=== PATIENT | male | born 1990 | race Caucasian/White ===

== ENCOUNTER 2020-03-25 12:20 | Outpatient (REF) | payer OTHER, SELFPAY | END 2020-03-25 12:21 | disposition home or self-care (01) | LOC: HO.LAB 12:20 | PROVIDERS: Visit Provider Internal Medicine | DX: Z20.828 Contact with and (suspected) exposure to other viral communicable diseases (principal) | CPT/HCPCS: C9803; U0003 ==

== ENCOUNTER 2020-04-12 14:49 | Outpatient (REF) | payer OTHER, SELFPAY | END 2020-04-12 14:50 | disposition home or self-care (01) | LOC: HO.LAB 14:49 | PROVIDERS: PCP Internal Medicine; Visit Provider Internal Medicine | DX: Z20.828 Contact with and (suspected) exposure to other viral communicable diseases (principal) | CPT/HCPCS: C9803; U0003 ==

== ENCOUNTER 2020-07-23 12:19 | Outpatient (REF) | payer OTHER, SELFPAY | END 2020-07-23 12:20 | disposition home or self-care (01) | LOC: HO.LAB 12:19 | PROVIDERS: Visit Provider Internal Medicine | DX: Z20.822 Contact with and (suspected) exposure to COVID-19 (principal) | CPT/HCPCS: C9803; U0003; U0005 ==

== ENCOUNTER 2020-08-10 10:04 | Outpatient (REF) | payer OTHER, SELFPAY ==
[2020-08-10 10:21] LABS: COVID-19 Test Negative (Negative)
== END 2020-08-10 10:05 | disposition home or self-care (01) ==
LOC: HO.LAB 10:04
PROVIDERS: Visit Provider Internal Medicine
DX: Z20.822 Contact with and (suspected) exposure to COVID-19 (principal)
CPT/HCPCS: 36415; 87635; C9803

== ENCOUNTER 2022-11-06 09:58 | Outpatient (AMB) | payer OTHER, SELFPAY ==
--- NOTE | 2022-11-06 09:59 | MHC.PC.OV ---
Vital Signs 11/06/22 10:01 Height 6 ft 1.5 in Weight 255 lb 6 oz BMI 33.2 BP 130/70 Blood Pressure Location Lt brachial Position Sitting Pulse 82 Pulse Source Pulse Oximeter Pulse Oximetry (%) 98 Oxygen Delivery Method Room Air Intake Visit Reasons: Med follow up Intake Note: Patient is here to follow up on medication review. Sergeant Of Corrections Required: No Thermodynamics Engineer: Not Required per policy Accompanied by: Self / Same As Patient Allergies No Known Allergies Allergy (Verified 11/06/22 10:01) Medication List - Last Reconciled 11/06/22 by Woo Kirk MD apremilast (Otezla) 30 mg PO BID cephalexin 500 mg PO QID hydrocortisone 2.5% topical naproxen 500 mg PO BID paroxetine HCl 10 mg PO DAILY Tobacco use date assessed: 11/06/22 Dental Screening Dental Screen Date: 11/06/22 Did you have a dental visit in the last 12 months?: Yes Did you have a dental problem in the last 6 months where you did not have access to dental care?: No Was dental information given to patient?: Patient has dentist HPI Med follow up HPI Details depression and psoriatic arthritis; goes to rheum; doing well [facility] Medical History (Updated 11/06/22 @ 10:35 by Woo Kirk MD) Psoriatic arthritis Surgical History History of tear of ACL (anterior cruciate ligament) History of tonsillectomy and adenoidectomy History of wisdom tooth extraction Family History (Updated 11/06/22 @ 10:07 by AJ Tate) Father Prediabetes Hypertension Asthma Mother No problems noted. 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 1. Little interest or pleasure in doing things: not at all 2. Feeling down, depressed, or hopeless: not at all 3. Trouble falling or staying asleep, or sleeping too much: not at all 4. Feeling tired or having little energy: not at all 5. Poor appetite or overeating: not at all 6. Feeling bad about yourself - or that you are a failure or have let yourself or your family down: not at all 7. Trouble concentrating on things, such as reading the newspaper or watching television: not at all 8. Moving or speaking so slowly that other people could have noticed. Or the opposite - being so fidgety or restless that you have been moving around a lot more than usual: not at all 9. Thoughts that you would be better off or of hurting yourself in some way: not at all Total score: 0 Depression Screening Interpretation: Negative Source: Developed by Drs. Noé Ralph, Annamaria Arellano, Alexandro Reynoso and colleagues, with an educational isa from [employer]. Thrive Questionnaire Date Thrive assessed: 11/06/22 I am a: Patient What is your living situation today?: I have a steady place to live Within the past 12 months, did the food you bought not last and you didn't have the money to get more?: Never true Within the past 12 months, did you worry whether your food would run out before you got money to buy more?: Never true Do you have trouble paying for medicines?: No Do you have trouble getting transportation to medical appointments?: No Do you have trouble paying your heating and electricity bill?: No Do you have trouble taking care of your child, family member or friend?: No Do you have trouble with day-to-day activities such as bathing, preparing meals, shopping, managing finances, etc.?: No Are you currently unemployed and looking for a job?: No Are you interested in more education?: No Currently or been in a relationship where the following occur: no concerns reported AUDIT C Alcohol Use Questionnaire (AUDIT-C) 1. How often do you have a drink containing alcohol?: Never Total Score: 0 CHANELL-7 AMB Questionnaire CHANELL-7 Date CHANELL - 7 assessed: 11/06/22 Feeling nervous, anxious, or on edge: 1 = Several days (currently on medication) Not being able to stop or control worryin = Not at all Worrying too much about different things: 0 = Not at all Trouble relaxin = Not at all Being so restless that it is hard to sit still: 0 = Not at all Becoming easily annoyed or irritable: 0 = Not at all Feeling afraid as if something awful might happen: 0 = Not at all Total CHANELL-7 score (0-4 normal; 5-9 mild; 10-14 moderate; 15-21 severe): 1 Source: Developed by Drs. Noé Ralph, Annamaria Arellano, Alexandro Reynoso and colleagues, with an educational isa from [employer]. Review of Systems Const Denies chills, Denies headache(s) and Denies weight loss ENT Denies headache(s) Card Denies chest pain, Denies syncope, Denies irregular heart rhythm and Denies dyspnea Resp Denies chest congestion, Denies cough and Denies dyspnea GI Denies abdominal pain, Denies change in stool character, Denies nausea and Denies vomiting Musc Denies deformity and Denies joint swelling Neuro Denies syncope and Denies headache(s) Physical exam (Primary Care) Vital Signs: Last Vital Signs Pulse 82 11/06/22 10:01 BP 130/70 11/06/22 10:01 Pulse Ox 98 11/06/22 10:01 Oxygen Delivery Method Room Air 11/06/22 10:01 BMI result Body Mass Index 33.2 Tobacco/Smoking Status: Tobacco use Status Tobacco use date assessed 11/06/22 11/06/22 10:08 Patient Tobacco Use Status Never used Tobacco 11/06/22 10:08 e-Cigarette/Vaping Use Never Used 11/06/22 10:08 PHQ-9: PHQ-9 Score PHQ-9: Total score 0 11/06/22 10:08 Depression Screening Interpretation: Negative Thrive Assessment: Date of Thrive Assessment Date Thrive assessed 11/06/22 11/06/22 10:08 Currently or been in a relationship where the following occur: no concerns reported Const General: cooperative, comfortable and no acute distress Resp Effort & Inspection: normal respiratory effort Auscultation: clear to auscultation bilaterally Percussion: percussion normal Cardio Jugular venous distension: no JVD Rate: regular rate Rhythm: regular rhythm Other: scrotal cyst Assessment and Plan Assessment & Plan (1) Psoriatic arthritis: Code(s): L40.50 - Arthropathic psoriasis, unspecified Plan: stable; as per rheum (2) Depression: Code(s): F32.A - Depression, unspecified Plan: stable; same rx (3) Scrotal cyst: Code(s): L72.9 - Follicular cyst of the skin and subcutaneous tissue, unspecified Plan: ref urol Orders: Orders Comprehensive [place]. Panel Fast Today N28.9 - Disorder of kidney and ureter, unspecified Lipid Panel Today E78.5 - Hyperlipidemia, unspecified Thyroid Stimulating Hormone Today E03.9 - Hypothyroidism, unspecified Complete Blood Count Auto Diff Today D64.9 - Anemia, unspecified Referrals Urology Referral L72.9 - Follicular cyst of the skin and subcutaneous tissue, unspecified Coding Level of Care Code Est Pt Level 4 (53194) Diagnoses Psoriatic arthritis L40.50 Depression F32.A Scrotal cyst L72.9
[2022-11-06 10:01] VITALS: BP 130/70; PULSE 82; O2SAT 98; BMI 33.2
== END 2022-11-06 10:19 | disposition home or self-care (01) ==
PROVIDERS: PCP Internal Medicine; Visit Provider Internal Medicine
DX: L40.50 Arthropathic psoriasis, unspecified (principal); F32.A Depression, unspecified; L72.9 Follicular cyst of the skin and subcutaneous tissue, unspecified
CPT/HCPCS: 99214

== ENCOUNTER 2022-12-26 14:31 | Outpatient (AMB) | payer OTHER, SELFPAY ==
--- NOTE | 2022-12-26 14:59 | A.OFFVIS_ITS ---
Intake Intake Visit Reasons: Follicular cyst of skin and subcutaneous tissue Intake Note: New Patent presents for initial visit scrotal cyst Urology Medications: None Blood Thinner: None Clerical Coordinator Required: No Accompanied by: Self / Same As Patient Allergies No Known Allergies Allergy (Verified 12/26/22 18:10) Medication List - Last Reconciled 12/26/22 by YASMEEN Pandey apremilast (Otezla) 30 mg PO BID hydrocortisone 2.5% topical naproxen 500 mg PO BID paroxetine HCl 10 mg PO DAILY HPI HPI Comments History of Present Illness Details Martin is a very pleasant 32 year old male patient of Dr. Kirk. He has a PMH of psoriatic arthritis. He presents to the office today as a new patient for a left sided scrotal sebaceous cyst. When asked he reports cyst to have been present for approximately 5 years. He denies pain. He denies any issues with his urinartion. When asked he denies urinary urgency, urinary frequency, incontinence, nocturia, hematuria, dysuria, foul smelling urine, changes to urinary stream, flank pain, fever, and or chills. He is happy with his current voiding parameters. In assessment of the patient today moderate sized sebaceous cyst noted to left side of the scrotum. There are multiple (4 to 5) other smaller cyst like areas. Patient with psoriatic arthritis exacerbation to top of the pubic area. He reports to be taking Otezla and topical steroids to assist with this. In office urinalysis results reviewed with the patient today. Patient otherwise denies any other issues or concerns at this time. Discussed at length surgical procedure for removal/drainage verses continuation of surveillance monitoring. Discussed risks and benefits of surgical intervention versus surveillance monitoring. At this time patient wishes to undergo surgical intervention. [facility] Medical History Psoriatic arthritis Surgical History History of tear of ACL (anterior cruciate ligament) History of wisdom tooth extraction History of tonsillectomy and adenoidectomy Family History Father Prediabetes Hypertension Asthma Mother No problems noted. 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 [employer] Cognitive needs: No Hearing needs: No Vision needs: Yes (glasses) Review of Systems Const All systems reviewed & are unremarkable except as noted in HPI and below Reports no additional complaints Eyes Reports no additional complaints ENT Reports no additional complaints Card Reports no additional complaints Resp Reports no additional complaints GI Reports no additional complaints Reports as per HPI Musc Reports as per HPI Skin/Breast Reports as per HPI Neuro Reports no additional complaints Psych Reports no additional complaints Endo Reports no additional complaints Physical Exam Const General: cooperative, healthy appearing, comfortable, no acute distress, well developed, alert and awake Orientation/consciousness: patient oriented x3 Limitations: no limitations HEENT Head: Yes normal to inspection, Yes normocephalic and Yes atraumatic Ears: hearing grossly normal bilaterally Eyes General: appearance normal, both eyes and all related structures Neck Neck: Yes normal visual inspection and Yes trachea midline Chest Chest palpation & inspection: normal inspection of the chest Resp Effort & Inspection: normal respiratory effort and able to speak in complete sentences Cardio Rate: regular rate GI Inspection: Yes normal to inspection General: Yes no CVA tenderness Penis: normal penis and circumcised Meatus: meatus normal Scrotum: other (moderate sized Sebaceous cyst noted to left side of the scrotum ) Back/Spine/Pelvis Back: no CVA tenderness Skin General skin exam: no rashes or lesions noted Neuro General: patient oriented x3 Extrem General: Yes normal to inspection Psych Appearance: grossly normal and well kempt Mental Status: mental status grossly normal Speech and movement: Normal speech and movement present and Clear speech present Affect: normal affect Attitude: cooperative Thought process: Normal thought process present Thought content: Normal thought content present Insight: Good insight present (Psych) Judgement: Good judgement present (Psych) Results AMB Urinalysis, Automated UA Leukoctes 0 Rupa/uL Last Edit by Aspen Sarabia on 12/26/22 15:09 UA Nitrite Negative Last Edit by Aspen Sarabia on 12/26/22 15:09 UA Urobilinogen 0.2 mg/dL Last Edit by Aspen Sarabia on 12/26/22 15:09 UA Protein 0 mg/dL Last Edit by Aspen Sarabia on 12/26/22 15:09 UA pH 6.5 Last Edit by Aspen Sarabia on 12/26/22 15:09 UA Blood 0 Myron/uL Last Edit by Aspen Sarabia on 12/26/22 15:09 UA Specific Banks 1.005 Last Edit by Aspen Sarabia on 12/26/22 15:09 UA Ketone Negative Last Edit by Aspen Sarabia on 12/26/22 15:09 UA Bilirubin 0 mg/dL Last Edit by Aspen Sarabia on 12/26/22 15:09 UA Glucose 0 mg/dL Last Edit by Aspen Sarabia on 12/26/22 15:09 Results Reviewed Results Reviewed: Laboratory Last Values Urine pH (Auto) 6.5 12/26/22 15:05 Specific Banks (Auto) 1.005 12/26/22 15:05 Urine Protein (Auto) 0 mg/dL 12/26/22 15:05 Glucose (UA)(Auto) 0 mg/dL 12/26/22 15:05 Urine Ketones (Auto) Negative 12/26/22 15:05 Urine Blood (Auto) 0 Myron/uL 12/26/22 15:05 Urine Nitrite (Auto) Negative 12/26/22 15:05 Urine Bilirubin (Auto) 0 mg/dL 12/26/22 15:05 Urine Urobilinogen (Auto) 0.2 mg/dL 12/26/22 15:05 Leukocyte Esterase (Auto) 0 Rupa/uL 12/26/22 15:05 Assessment & Plan Assessment & Plan (1) Scrotal cyst: Code(s): L72.9 - Follicular cyst of the skin and subcutaneous tissue, unspecified Plan: Risks, benefits and alternatives to therapy were discussed. These include but are not limited to infection, bleeding, damage to local organs and tissues, need for further interventions. ? Anesthetic risks regarding cardiac arrhythmia, blood clots, and potential mortality were discussed. The patient understands the typical recovery time and the outpatient nature of the procedure. After consideration of these risks the patient gives full informed consent and they wish to move ahead with the procedure. (2) Sebaceous cyst: Code(s): L72.3 - Sebaceous cyst Plan In office urinalysis results reviewed with the patient today; as noted above Patient with moderate sized sebaceous cyst to left side of the scrotum with multiple smaller scrotal cysts present Patient denies any bothersome urinary issues or concerns at this time in to further assess Will schedule for sebaceous cyst drainage/removal along with CO2 laser removal of multiple smaller scrotal cysts Discussed at length risks versus benefits of surgical procedure All questions were answered Will schedule for surgical procedure as discussed with Dr. Pereyra Follow up S/P surgery per Dr. Pereyra's orders; or sooner with any questions, issues, or concerns. Orders: Orders AMB Urinalysis Automated Today Z13.9 - Encounter for screening, unspecified Patient Instructions: The patient had an opportunity to ask questions regarding the treatment plan. All questions were answered. Physical exam, labs, and imaging were discussed and reviewed in detail. As well as risks, benefits, and discussion of treatment choices. No major barriers to understanding were identified. The patient expressed understanding and agreement with the above treatment plan. The patient was made aware they should contact our office by phone for worsening of their current condition, the appearance of new symptoms, or with any questions or concerns. Compliance is encouraged with any medications and follow up testing that is ordered. It is a privilege to be allowed the opportunity to participate in? your urological care.? Again, if you have any questions or concerns If you have any questions or concerns please do not hesitate to contact me. The office is [phone]. This note is constructed using voice recognition software. While every effort has been made to ensure accuracy silhouette artist errors may have been included. Yours sincerely, YASMEEN Pandey Coding Level of Care Code New Pt Level 4 (30430) Diagnoses Scrotal cyst L72.9 Sebaceous cyst L72.3
== END 2022-12-26 15:44 | disposition home or self-care (01) ==
PROVIDERS: PCP Internal Medicine; Referring Provider Internal Medicine; Visit Provider Nurse Practitioner Family
DX: L72.9 Follicular cyst of the skin and subcutaneous tissue, unspecified (principal); L72.3 Sebaceous cyst; Z13.9 Encounter for screening, unspecified
CPT/HCPCS: 99204

== ENCOUNTER → 2022-12-26 14:31 | Outpatient (BNVA) | payer OTHER, SELFPAY | PROVIDERS: PCP Internal Medicine; Referring Provider Internal Medicine; Visit Provider Nurse Practitioner Family | DX: L72.9 Follicular cyst of the skin and subcutaneous tissue, unspecified (principal); L72.3 Sebaceous cyst | CPT/HCPCS: 81003 ==

== ENCOUNTER 2023-01-02 08:36 | Outpatient (REF) | payer OTHER, SELFPAY ==
[2023-01-02 08:58] LABS: MANUAL DIFF FLAG NO
[2023-01-02 10:07] LABS: Basophils Percent Auto 0.3 % (0-2); Eosinophils Absolute Auto 0.1 X10*3/uL (0.0-0.4); Eosinophils Percent Auto 1.2 % (0-4); Hematocrit 42.4 % (42.0-52.0); Hemoglobin 13.6 g/dl (14.0-18.0); Imm Gran Abs Auto 0.08 X10*3/uL (0.00-0.03); Imm Gran Pct Auto 0.8 % (0.0-0.4); Lymphocytes Absolute Auto 2.3 X10*3/uL (1.2-4.9); Lymphocytes Percent Auto 23.4 % (20-40); Mean Corpuscular HGB Conc 32.1 g/dl (31.0-36.0); Mean Corpuscular Hemoglobin 27.1 pg (27.0-33.0); Mean Corpuscular Volume 84.5 fL (80.0-98.0); Mean Platelet Volume 11.8 fL (9.4-12.4); Monocytes Absolute Auto 0.8 X10*3/uL (0.1-1.2); Monocytes Percent Auto 7.8 % (2-11); Neutrophils Absolute Auto 6.4 x10*3/uL (2.0-8.3); Neutrophils Percent Auto 66.5 % (45-73); Platelet Count 297 X10*3/uL (160-400); Red Blood Count 5.02 X10*6/uL (4.60-5.80); Red Cell Distribution Width 13.2 % (11.0-16.0); White Blood Count 9.6 X10*3/uL (4.8-10.8)
[2023-01-02 11:13] LABS: Alanine Aminotransferase 14 U/L (0-40); Albumin Level 4.1 g/dL (3.5-5.0); Alkaline Phosphatase 71 U/L (39-117); Anion Gap 13 (12-20); Aspartate Amino Transferase 17 U/L (5-37); Bilirubin Total 0.4 mg/dL (0.0-1.0); Blood Urea Nitrogen 9 mg/dL (9-16); Calcium 9.6 mg/dL (8.4-10.2); Carbon Dioxide 26 mmol/L (22-29); Chloride 106 mmol/L (96-108); Cholesterol 187 mg/dL (<200); Estimated Glomerular Filt Rate > 60; Glucose Fasting 93 mg/dL (60-99); HDL Cholesterol 44 mg/dL (>40); LDL Cholesterol Calculated 124 mg/dL (<100); Potassium 4.2 mmol/L (3.3-5.1); Sodium 141 mmol/L (135-145); Total Protein 8.1 g/dL (6.5-8.0); Triglycerides 95 mg/dL (<150)
[2023-01-02 11:28] LABS: Thyroid Stimulating Hormone 1.58 uIU/mL (0.32-4.0)
== END 2023-01-02 08:37 | disposition home or self-care (01) ==
LOC: HO.LAB 08:36
PROVIDERS: PCP Internal Medicine; Visit Provider Internal Medicine
DX: D64.9 Anemia, unspecified (principal); E03.9 Hypothyroidism, unspecified; N28.9 Disorder of kidney and ureter, unspecified; E78.5 Hyperlipidemia, unspecified
CPT/HCPCS: 36415; 80053; 80061; 84443; 85025

== ENCOUNTER 2023-05-28 09:25 | Outpatient (AMB) | payer OTHER, SELFPAY ==
[2023-05-28 09:30] VITALS: BP 126/70; PULSE 60; O2SAT 100; BMI 32.9
--- NOTE | 2023-05-28 09:30 | MHC.PC.OV ---
Vital Signs 05/28/23 09:30 Height 6 ft 1.5 in Weight 253 lb BMI 32.9 BP 126/70 Blood Pressure Location Lt brachial Position Sitting Pulse 60 Pulse Source Pulse Oximeter Pulse Oximetry (%) 100 Oxygen Delivery Method Room Air Intake Visit Reasons: Arthritis/ referral Devil Tender Required: No Instructor Dramatic Arts: Not Required per policy Accompanied by: Self / Same As Patient Allergies No Known Allergies Allergy (Verified 05/28/23 09:31) Tobacco use date assessed: 05/28/23 Dental Screening Dental Screen Date: 05/28/23 Did you have a dental visit in the last 12 months?: Yes Did you have a dental problem in the last 6 months where you did not have access to dental care?: No Was dental information given to patient?: Patient has dentist HPI Arthritis/ referral HPI Details psoriatic arthritis and needs referral to [facility]; has been going there for years [facility] Medical History (Updated 02/15/23 @ 14:03 by Lesa Godwin RN) Depression Psoriatic arthritis Surgical History History of tear of ACL (anterior cruciate ligament) History of wisdom tooth extraction History of tonsillectomy and adenoidectomy Family History Father Prediabetes Hypertension Asthma Mother No problems noted. 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 1. Little interest or pleasure in doing things: not at all 2. Feeling down, depressed, or hopeless: not at all 3. Trouble falling or staying asleep, or sleeping too much: not at all 4. Feeling tired or having little energy: not at all 5. Poor appetite or overeating: not at all 6. Feeling bad about yourself - or that you are a failure or have let yourself or your family down: not at all 7. Trouble concentrating on things, such as reading the newspaper or watching television: not at all 8. Moving or speaking so slowly that other people could have noticed. Or the opposite - being so fidgety or restless that you have been moving around a lot more than usual: not at all 9. Thoughts that you would be better off or of hurting yourself in some way: not at all Total score: 0 Depression Screening Interpretation: Negative Depression Screening Done: Yes 44232 - PHQ-9 Billing: Yes Source: Developed by Drs. Noé Ralph, Annamaria Arellano, Alexandro Reynoso and colleagues, with an educational isa from [employer]. Thrive Questionnaire Date Thrive assessed: 05/28/23 I am a: Patient What is your living situation today?: I have a steady place to live Within the past 12 months, did the food you bought not last and you didn't have the money to get more?: Never true Within the past 12 months, did you worry whether your food would run out before you got money to buy more?: Never true Do you have trouble paying for medicines?: No Do you have trouble getting transportation to medical appointments?: No Do you have trouble paying your heating and electricity bill?: No Do you have trouble taking care of your child, family member or friend?: No Do you have trouble with day-to-day activities such as bathing, preparing meals, shopping, managing finances, etc.?: No Are you currently unemployed and looking for a job?: No Are you interested in more education?: No Please select the resources that you would like help with: None THRIVE Score: 0 AUDIT C Alcohol Use Questionnaire (AUDIT-C) 1. How often do you have a drink containing alcohol?: Never Total Score: 0 CHANELL-7 AMB Questionnaire CHANELL-7 Date CHANELL - 7 assessed: 05/28/23 Feeling nervous, anxious, or on edge: 0 = Not at all Not being able to stop or control worryin = Not at all Worrying too much about different things: 0 = Not at all Trouble relaxin = Not at all Being so restless that it is hard to sit still: 0 = Not at all Becoming easily annoyed or irritable: 0 = Not at all Feeling afraid as if something awful might happen: 0 = Not at all Total CHANELL-7 score (0-4 normal; 5-9 mild; 10-14 moderate; 15-21 severe): 0 Source: Developed by Drs. Noé Ralph, Annamaria Arellano, Alexandro Reynoso and colleagues, with an educational isa from [employer]. CHANELL-7 Assessment Billing CHANELL-7 Assessment Tool: CHANELL-7 Assessment 98239 Review of Systems Const Denies chills, Denies headache(s) and Denies weight loss ENT Denies headache(s) Card Denies chest pain, Denies syncope, Denies irregular heart rhythm and Denies dyspnea Resp Denies chest congestion, Denies cough and Denies dyspnea GI Denies abdominal pain, Denies change in stool character, Denies nausea and Denies vomiting Musc Denies deformity and Denies joint swelling Neuro Denies syncope and Denies headache(s) Physical exam (Primary Care) Vital Signs: Last Vital Signs Pulse 60 05/28/23 09:30 BP 126/70 05/28/23 09:30 Pulse Ox 100 05/28/23 09:30 Oxygen Delivery Method Room Air 05/28/23 09:30 BMI result Body Mass Index 32.9 Tobacco/Smoking Status: Tobacco use Status Tobacco use date assessed 05/28/23 05/28/23 09:35 Patient Tobacco Use Status Never used Tobacco 05/28/23 09:35 e-Cigarette/Vaping Use Never Used 05/28/23 09:35 PHQ-9: PHQ-9 Score PHQ-9: Total score 0 05/28/23 09:35 Depression Screening Interpretation: Negative Thrive Assessment: Date of Thrive Assessment Date Thrive assessed 05/28/23 05/28/23 09:35 Const General: cooperative, comfortable, no acute distress and alert Neck Neck: Yes no lymphadenopathy Thyroid: Thyroid normal Resp Effort & Inspection: normal respiratory effort Auscultation: clear to auscultation bilaterally Percussion: percussion normal Cardio Jugular venous distension: no JVD Palpation: normal PMI Rate: regular rate Rhythm: regular rhythm Heart sounds: S1 normal heart sound present and S2 normal heart sound present GI Inspection: Yes normal to inspection Palpation (GI): No hepatosplenomegaly present Skin General skin exam: no rashes or lesions noted Extrem General: Yes no clubbing, cyanosis or edema Assessment and Plan Assessment & Plan (1) Psoriatic arthritis: Code(s): L40.50 - Arthropathic psoriasis, unspecified Plan: as per rheum Orders: Referrals Rheumatology Referral L40.50 - Arthropathic psoriasis, unspecified Coding Level of Care Code Est Pt Level 3 (06116) Diagnoses Psoriatic arthritis L40.50 Additional Codes CHANELL-7 Assessment Billing - CHANELL-7 Assessment Tool: CHANELL-7 Assessment 17204 ([id number])
== END 2023-05-28 09:42 | disposition home or self-care (01) ==
PROVIDERS: PCP Internal Medicine; Visit Provider Internal Medicine
DX: L40.50 Arthropathic psoriasis, unspecified (principal)
CPT/HCPCS: 99213

== ENCOUNTER 2024-08-29 12:53 | Outpatient (AMB) | payer OTHER, SELFPAY ==
[2024-08-29 13:09] VITALS: BP 146/106; PULSE 81; RESP 16; TEMP 37.1; O2SAT 99; BMI 31.1
--- NOTE | 2024-08-29 13:09 | A.OFFPC_ITS ---
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 Required: No Accompanied by: Self / Same As Patient Allergies No Known Allergies Allergy (Verified 08/29/24 13:34) Medication List - Last Reconciled 08/29/24 by ELIUD Estrada apremilast (Otezla) 30 mg PO BID folic acid 1 mg PO DAILY methotrexate sodium 10 mg PO QWEEK naproxen 500 mg PO BID paroxetine HCl 10 mg PO DAILY Tobacco use date assessed: 08/29/24 Dental Screening Dental Screen Date: 08/29/24 Did you have a dental visit in the last 12 months?: Yes Did you have a dental problem in the last 6 months where you did not have access to dental care?: No Was dental information given to patient?: Patient has dentist HPI ESCOBAR DR Kirk HPI Details The patient is a 34-year-old male presenting for transition of care from Dr. Kirk. Medical history includes Depression, anxiety, but noted to be hypertensive in office today. He mentions that the elevation in blood pressure is unusual for him. He associates this change with recent stress at work and personal anticipations to meeting new provider but reports no other associated cardiovascular symptoms. He regularly visits a well control instructor for rheumatoid arthritis, taking Otezla and naproxen which he missed taking on the day of the visit. A prior ruptured epidermal cyst has decreased in size and is currently manageable. He maintains a stable medication regimen for anxiety with paroxetine, and his hyperlipidemia is managed through dietary adjustments, although his LDL was previously noted to be slightly elevated. [facility] Medical History (Updated 09/08/24 @ 16:47 by ELIUD Estrada) Depression Psoriatic arthritis Surgical History History of tear of ACL (anterior cruciate ligament) History of wisdom tooth extraction History of tonsillectomy and adenoidectomy Family History Father Prediabetes Hypertension Asthma Mother No problems noted. 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 1. Little interest or pleasure in doing things: not at all 2. Feeling down, depressed, or hopeless: not at all 3. Trouble falling or staying asleep, or sleeping too much: not at all 4. Feeling tired or having little energy: not at all 5. Poor appetite or overeating: not at all 6. Feeling bad about yourself - or that you are a failure or have let yourself or your family down: not at all 7. Trouble concentrating on things, such as reading the newspaper or watching television: not at all 8. Moving or speaking so slowly that other people could have noticed. Or the opposite - being so fidgety or restless that you have been moving around a lot more than usual: not at all 9. Thoughts that you would be better off or of hurting yourself in some way: not at all Total score: 0 Depression Screening Interpretation: Negative Depression Screening Done: Yes 05525 - PHQ-9 Billing: Yes Source: Developed by Drs. Noé Ralph, Annamaria Arellano, Alexandro Reynoso and colleagues, with an educational isa from [employer]. Thrive Questionnaire Date Thrive assessed: 08/29/24 I am a: Patient What is your living situation today?: I have a steady place to live Within the past 12 months, did the food you bought not last and you didn't have the money to get more?: Never true Within the past 12 months, did you worry whether your food would run out before you got money to buy more?: Never true Do you have trouble paying for medicines?: No Do you have trouble getting transportation to medical appointments?: No Do you have trouble paying your heating and electricity bill?: No Do you have trouble taking care of your child, family member or friend?: No Do you have trouble with day-to-day activities such as bathing, preparing meals, shopping, managing finances, etc.?: No Are you currently unemployed and looking for a job?: No Are you interested in more education?: No Please select the resources that you would like help with: None Currently or been in a relationship where the following occur: No concerns reported THRIVE Score: 0 AUDIT C Alcohol Use Questionnaire (AUDIT-C) 1. How often do you have a drink containing alcohol?: Monthly or less 2. How many drinks containing alcohol do you have on a typical day when you are drinking?: 1 or 2 3. How often do you have six or more drinks on one occasion?: Never Total Score: 1 Score Reviewed/Action Taken: No CHANELL-7 AMB Questionnaire CHANELL-7 Date CHANELL - 7 assessed: 08/29/24 Feeling nervous, anxious, or on edge: 0 = Not at all Not being able to stop or control worryin = Not at all Worrying too much about different things: 0 = Not at all Trouble relaxin = Not at all Being so restless that it is hard to sit still: 0 = Not at all Becoming easily annoyed or irritable: 0 = Not at all Feeling afraid as if something awful might happen: 0 = Not at all Total CHANELL-7 score (0-4 normal; 5-9 mild; 10-14 moderate; 15-21 severe): 0 Source: Developed by Drs. Noé Ralph, Annamaria Arellano, Alexandro Reynoso and colleagues, with an educational isa from [employer]. CHANELL-7 Assessment Billing CHANELL-7 Assessment Tool: CHANELL-7 Assessment 91813 Review of Systems Const Denies headache(s) Eyes Denies loss of vision ENT Denies vertigo, Denies dizziness, Denies headache(s) and Denies sore throat Card Denies chest pain, Denies leg edema and Denies lightheadedness Resp Denies cough, Denies hemoptysis and Denies wheezing GI Denies abdominal pain, Denies melena, Denies constipation, Denies diarrhea and Denies vomiting Denies dysuria, Denies urinary frequency and Denies urinary urgency Musc Reports arthralgias (knees and finger joints), Denies joint swelling, Denies numbness and Denies tingling Neuro Denies Abnormal speech present, Denies behavioral changes, Denies vertigo, Denies dizziness, Denies headache(s), Denies loss of vision, Denies memory loss, Denies numbness and Denies tingling Psych Reports anxiety, Denies behavioral changes, Reports depression, Denies memory loss and Denies panic attacks Keon/Lymph Denies easy bleeding and Denies easy bruising Aller/Immun Denies wheezing Physical exam (Primary Care) Vital Signs: Last Vital Signs Temp 98.7 F 08/29/24 13:09 Pulse 81 08/29/24 13:09 Resp 16 08/29/24 13:09 BP 128/86 08/29/24 13:52 Pulse Ox 99 08/29/24 13:09 Oxygen Delivery Method Room Air 08/29/24 13:09 BMI result Body Mass Index 31.1 Tobacco/Smoking Status: Tobacco use Status Tobacco use date assessed 08/29/24 08/29/24 13:17 Patient Tobacco Use Status Never used Tobacco 08/29/24 13:17 e-Cigarette/Vaping Use Never Used 08/29/24 13:17 PHQ-9: PHQ-9 Score PHQ-9: Total score 0 08/29/24 13:49 Depression Screening Interpretation: Negative Thrive Assessment: Date of Thrive Assessment Date Thrive assessed 08/29/24 08/29/24 13:17 Currently or been in a relationship where the following occur: No concerns reported Const General: healthy appearing, no acute distress, alert and awake Nutritional Appearance: well nourished Orientation/consciousness: oriented to person, oriented to place and oriented to time HENMT Ears: TM's normal bilaterally General nose exam: Normal nasal mucous membranes and turbinates present Eyes Conjunctivae: conjunctivae normal Sclerae: sclerae normal Pupils: Equal, round and reactive pupils present Neck Neck: Yes no lymphadenopathy and Yes no JVD Thyroid: Thyroid normal Carotids: no bruits Resp Effort & Inspection: normal respiratory effort and not tachypneic Auscultation: no crackles, no rales, no rhonchi and no wheezes Cardio Rate: regular rate Rhythm: regular rhythm Heart sounds: no murmurs and normal S1 and S2 GI Palpation (GI): Soft to palpation, nontender, no hepatomegaly and no splenomegaly Auscultation: normal bowel sounds Skin General skin exam: no rashes or lesions noted and dry skin Neuro General: oriented to person, oriented to place and oriented to time Cranial nerves: Yes Equal, round and reactive pupils present Speech: No Abnormal speech present Gait exam (Neuro): Normal gait present Motor exam (neuro): no tremor noted Extrem Right upper extremity: full ROM and Extremity exam: right hand Details: normal to inspection Left upper extremity: full ROM and hand Details: normal to inspection Right lower extremity: full ROM and knee Details: no tenderness and no swelling; no edema Left lower extremity: full ROM and knee Details: no tenderness and no swelling; no edema Psych Mental Status: mental status grossly normal Speech and movement: Normal speech and movement present Affect: normal affect Attitude: cooperative Thought process: Normal thought process present Coding Level of Care Code Est Pt Level 3 (26051) Diagnoses Elevated blood pressure reading in office with diagnosis of hypertension I10 Psoriatic arthritis L40.50 Depression, unspecified depression type F32.A Depression Type: unspecified Rheumatoid arthritis involving multiple sites, unspecified whether rheumatoid factor present M06.9 Rheumatoid arthritis location: multiple sites Rheumatoid factor presence: unspecified presence Additional Codes CHANELL-7 Assessment Billing - CHANELL-7 Assessment Tool: CHANELL-7 Assessment 64048 ([id number]) PHQ-9 - 65448 - PHQ-9 Billing: Yes ([id number]) Time Spent (min) 31 Assessment & Plan Assessment & Plan (1) Elevated blood pressure reading in office with diagnosis of hypertension: Code(s): I10 - Essential (primary) hypertension Category: Medical Plan: Blood pressure elevated in office. Patient states that he was rushing to make the appointment on top of the anxiety of meeting a new provider could have caused his recent elevated blood pressure. Blood pressure checked 3 times; labs reading was 128/86. Encourage patient to monitor blood pressure and update office if he is getting elevated readings. Reinforced low-salt diet and caffeine intake. (2) Psoriatic arthritis: Code(s): L40.50 - Arthropathic psoriasis, unspecified Category: Medical Plan: Continue Otezla 30 mg b.i.d., folic acid 1 mg daily and naproxen 500 mg b.i.d. Follow up with rheumatology as scheduled (3) Depression: Code(s): F32.A - Depression, unspecified Category: Medical Qualifiers: Depression Type: unspecified Qualified Code(s): F32.A - Depression, unspecified Plan: Encouraged CBT Continue paroxetine 10 mg daily Denies SI/HI (4) Rheumatoid arthritis: Code(s): M06.9 - Rheumatoid arthritis, unspecified Category: Medical Qualifiers: Rheumatoid arthritis location: multiple sites Rheumatoid factor presence: unspecified presence Qualified Code(s): M06.9 - Rheumatoid arthritis, unspecified Plan: Continue methotrexate sodium 10 mg q.week, Continue Otezla 30 mg b.i.d., folic acid 1 mg daily and naproxen 500 mg b.i.d. Follow up with rheumatology as scheduled Orders: Orders Comprehensive [place]. Panel Fast 08/29/24 Z00. - Encounter for general adult medical examination without abnormal findings Vitamin D 25-OH Total 08/29/24 Z00. - Encounter for general adult medical examination without abnormal findings TSH reflex Free T4 08/29/24 Z00.00 - Encounter for general adult medical examination without abnormal findings Lipid Panel 08/29/2400. - Encounter for general adult medical examination without abnormal findings Glucose Fasting 08/29/2400. - Encounter for general adult medical examination without abnormal findings Complete Blood Count Auto Diff 08/29/24 Z00. - Encounter for general adult medical examination without abnormal findings UA CC w/rflx Micro + Cult 08/29/24 Z00. - Encounter for general adult medical examination without abnormal findings Medications: Refilled paroxetine HCl 10 mg PO DAILY 90 tabs 1RF
[2024-08-29 13:38] VITALS: BP 158/110
[2024-08-29 13:40] VITALS: BP 160/110
[2024-08-29 13:52] VITALS: BP 128/86
== END 2024-08-29 14:00 | disposition home or self-care (01) ==
LOC: HO.HMCH 12:54
PROVIDERS: PCP Internal Medicine
DX: I10 Essential (primary) hypertension (principal); L40.50 Arthropathic psoriasis, unspecified; F32.A Depression, unspecified; M06.9 Rheumatoid arthritis, unspecified

== ENCOUNTER → 2024-08-29 12:53 | Outpatient (BNVA) | payer OTHER, SELFPAY | PROVIDERS: PCP Internal Medicine | DX: I10 Essential (primary) hypertension (principal); F32.A Depression, unspecified; F41.9 Anxiety disorder, unspecified; L40.50 Arthropathic psoriasis, unspecified; M06.9 Rheumatoid arthritis, unspecified | CPT/HCPCS: 96127 ==